=== PATIENT | female | born 1960 | race Caucasian/White ===

== ENCOUNTER 2022-06-30 17:11 | Inpatient (IN) | payer MEDICAID, OTHER ==
[~2022-06-30] VITALS: Ht 162.6 cm; Wt 55.6 kg
[2022-06-30 22:19] LABS: Basophils # (auto) 0.1 10 ^3/uL (0-0.2); Basophils % (auto) 1.2 % (0.0-2.0); Eosinophils # (auto) 0.1 10 ^3/uL (0-0.8); Hematocrit 36.2 % (36.0-46.0); Hemoglobin 12.1 g/dL (12.2-16.2); Lymphocytes # (auto) 1.3 10 ^3/uL (0.4-5.4); Lymphocytes % (auto) 22.4 % (10.0-50.0); Mean Corpuscular Hemoglobin 29.1 pg (28.0-32.0); Mean Corpuscular Hgb Conc. 33.3 g/dL (32.0-36.0); Mean Corpuscular Volume 87.4 fL (80.0-100.0); Monocytes # (auto) 0.6 10 ^3/uL (0-1.3); Monocytes % (auto) 10.4 % (0.0-12.0); Neutrophils # (auto) 3.7 10 ^3/uL (1.6-8.6); Nucleated Red Blood Cells % 0.1 %; Red Blood Cells 4.14 10^6/uL (4.0-5.20); Red Cell Distribution Width 13.6 % (11.8-14.3); White Blood Cell 5.8 10^3/uL (4.4-10.8)
[2022-06-30 22:34] LABS: Albumin 3.5 g/dL (3.4-5.0); BUN/Creatinine Ratio 22.5; Calcium 9.2 mg/dL (8.5-10.1); Potassium 3.1 mmol/L (3.5-5.1)
[2022-06-30 22:37] LABS: Bilirubin, Total 0.4 mg/dL (0.2-1.0); Total Protein 7.3 g/dL (6.4-8.2)
[2022-06-30] MEDS ORDERED: POTASSIUM CHL 20 Meq TABLET PO ONE (23:45)
[2022-07-01] MEDS ORDERED: LORazepam 2MG/ML-1ML VIAL IM ONE (01:15)
[2022-07-01 02:06] LABS: Urine Bacteria NONE SEEN /hpf (None Seen); Urine Blood Negative /uL (Negative); Urine Mucus FEW (None Seen); Urine Specific Gravity 1.032 (1.001-1.035); Urine WBC 3 /hpf (0 - 5)
[2022-07-01] MEDS ORDERED: TEMAZEPAM 15 MG CAP PO PRN (04:45)
[2022-07-01] MEDS ORDERED: ONDANSETRON HCL 4 MG/2 ML VIAL IV PRN (04:45)
[2022-07-01] MEDS: PANTOPRAZOLE 40 MG TAB PO SCH (12:01)
[2022-07-01] MEDS: ENOXAPARIN SOD 40 MG/0.4 ML SYRINGE SC SCH (12:02)
[2022-07-01] MEDS ORDERED: QUEtiapine FUMARATE 25 MG TAB PO ONE (16:00)
[2022-07-01 17:00] VITALS: BP 117/71
[2022-07-01 17:55] LABS: Albumin 3.6 g/dL (3.4-5.0); Calcium 8.8 mg/dL (8.5-10.1); Potassium 3.4 mmol/L (3.5-5.1)
[2022-07-01 18:04] LABS: BUN/Creatinine Ratio 19.2; Bilirubin, Total 0.4 mg/dL (0.2-1.0)
[2022-07-01 22:00] VITALS: BP 129/74
[2022-07-01] MEDS ORDERED: POTASSIUM EFFERVESENT TAB 25 MEQ PO ONE (22:00)
[2022-07-01] MEDS: ATORVASTATIN 20 MG TAB PO SCH (22:06)
[2022-07-02 05:00] VITALS: BP 108/67
[2022-07-02 05:57] LABS: Basophils # (auto) 0.1 10 ^3/uL (0-0.2); Basophils % (auto) 1.2 % (0.0-2.0); Eosinophils # (auto) 0.1 10 ^3/uL (0-0.8); Eosinophils % (auto) 2.2 % (0.0-7.0); Hematocrit 37.3 % (36.0-46.0); Hemoglobin 12.1 g/dL (12.2-16.2); Lymphocytes # (auto) 1.5 10 ^3/uL (0.4-5.4); Lymphocytes % (auto) 26.9 % (10.0-50.0); Mean Corpuscular Hemoglobin 28.2 pg (28.0-32.0); Mean Corpuscular Hgb Conc. 32.4 g/dL (32.0-36.0); Monocytes # (auto) 0.4 10 ^3/uL (0-1.3); Monocytes % (auto) 8.2 % (0.0-12.0); Neutrophils # (auto) 3.3 10 ^3/uL (1.6-8.6); Neutrophils % (auto) 61.5 % (37.0-80.0); Red Blood Cells 4.29 10^6/uL (4.0-5.20); Red Cell Distribution Width 13.4 % (11.8-14.3); White Blood Cell 5.4 10^3/uL (4.4-10.8)
[2022-07-02 06:03] LABS: Albumin 3.2 g/dL (3.4-5.0); Calcium 8.4 mg/dL (8.5-10.1); Potassium 3.9 mmol/L (3.5-5.1)
[2022-07-02 06:07] LABS: BUN/Creatinine Ratio 11.8; Bilirubin, Total 0.5 mg/dL (0.2-1.0); Total Protein 6.1 g/dL (6.4-8.2)
[2022-07-02] MEDS: PANTOPRAZOLE 40 MG TAB PO SCH (10:00)
[2022-07-02] MEDS: ENOXAPARIN SOD 40 MG/0.4 ML SYRINGE SC SCH (10:11)
[2022-07-02] MEDS ORDERED: LORazepam 0.5 MG TAB PO PRN (16:45)
[2022-07-02] MEDS: ATORVASTATIN 20 MG TAB PO SCH (21:34)
[2022-07-02 22:00] VITALS: BP 144/65
[2022-07-03 05:00] VITALS: BP 114/80
[2022-07-03] MEDS: ACETAMINOPHEN 325 MG TAB PO PRN (06:51)
[2022-07-03 06:52] LABS: Basophils # (auto) 0.1 10 ^3/uL (0-0.2); Basophils % (auto) 1.1 % (0.0-2.0); Eosinophils # (auto) 0.1 10 ^3/uL (0-0.8); Eosinophils % (auto) 2.3 % (0.0-7.0); Hematocrit 35.8 % (36.0-46.0); Lymphocytes # (auto) 1.1 10 ^3/uL (0.4-5.4); Lymphocytes % (auto) 18.8 % (10.0-50.0); Mean Corpuscular Hemoglobin 29.2 pg (28.0-32.0); Mean Corpuscular Hgb Conc. 33.4 g/dL (32.0-36.0); Mean Corpuscular Volume 87.4 fL (80.0-100.0); Monocytes # (auto) 0.4 10 ^3/uL (0-1.3); Monocytes % (auto) 6.8 % (0.0-12.0); Neutrophils # (auto) 4.2 10 ^3/uL (1.6-8.6); Nucleated Red Blood Cells % 0.1 %; Red Cell Distribution Width 13.9 % (11.8-14.3)
[2022-07-03 06:57] LABS: Calcium 8.7 mg/dL (8.5-10.1); Potassium 3.8 mmol/L (3.5-5.1)
[2022-07-03 06:59] LABS: BUN/Creatinine Ratio 17.6
[2022-07-03 07:00] LABS: Albumin 2.9 g/dL (3.4-5.0)
[2022-07-03 07:03] LABS: Bilirubin, Total 0.3 mg/dL (0.2-1.0)
[2022-07-03 08:00] VITALS: BP 112/77
[2022-07-03] MEDS: ENOXAPARIN SOD 40 MG/0.4 ML SYRINGE SC SCH (10:25)
[2022-07-03] MEDS: PANTOPRAZOLE 40 MG TAB PO SCH (10:25)
[2022-07-03 12:00] VITALS: BP 124/77
[2022-07-03] MEDS ORDERED: ASPirin 81 mg TAB PO ONE (15:15)
[2022-07-03 16:00] VITALS: BP 131/77
[2022-07-03 22:00] VITALS: BP 99/52
[2022-07-03] MEDS: ATORVASTATIN 20 MG TAB PO SCH (22:20)
[2022-07-04 05:00] VITALS: BP 114/77
[2022-07-04 07:08] LABS: Basophils # (auto) 0.1 10 ^3/uL (0-0.2); Basophils % (auto) 1.2 % (0.0-2.0); Eosinophils # (auto) 0.1 10 ^3/uL (0-0.8); Eosinophils % (auto) 2.4 % (0.0-7.0); Hematocrit 37.2 % (36.0-46.0); Hemoglobin 12.2 g/dL (12.2-16.2); Lymphocytes # (auto) 1.5 10 ^3/uL (0.4-5.4); Lymphocytes % (auto) 29.5 % (10.0-50.0); Mean Corpuscular Hemoglobin 28.7 pg (28.0-32.0); Mean Corpuscular Hgb Conc. 32.8 g/dL (32.0-36.0); Mean Corpuscular Volume 87.3 fL (80.0-100.0); Monocytes # (auto) 0.4 10 ^3/uL (0-1.3); Monocytes % (auto) 7.5 % (0.0-12.0); Neutrophils % (auto) 59.4 % (37.0-80.0); Nucleated Red Blood Cells % 0.4 %; Red Blood Cells 4.25 10^6/uL (4.0-5.20); Red Cell Distribution Width 13.9 % (11.8-14.3); White Blood Cell 5.1 10^3/uL (4.4-10.8)
[2022-07-04 07:18] LABS: Albumin 3.3 g/dL (3.4-5.0); Calcium 8.7 mg/dL (8.5-10.1)
[2022-07-04 07:24] LABS: BUN/Creatinine Ratio 13.9; Bilirubin, Total 0.4 mg/dL (0.2-1.0); Total Protein 6.8 g/dL (6.4-8.2)
[2022-07-04 09:00] VITALS: BP 117/72
[2022-07-04] MEDS: ASPirin 81 mg TAB PO SCH (10:53)
[2022-07-04 13:00] VITALS: BP 118/65
[2022-07-04 16:58] VITALS: BP 119/64
[2022-07-04 21:31] VITALS: BP 139/85
[2022-07-04] MEDS: ATORVASTATIN 20 MG TAB PO SCH (22:13)
[2022-07-05 04:55] VITALS: BP 112/69
[2022-07-05 05:31] LABS: Basophils # (auto) 0.1 10 ^3/uL (0-0.2); Eosinophils # (auto) 0.1 10 ^3/uL (0-0.8); Eosinophils % (auto) 2.3 % (0.0-7.0); Hematocrit 35.1 % (36.0-46.0); Hemoglobin 11.5 g/dL (12.2-16.2); Lymphocytes # (auto) 1.3 10 ^3/uL (0.4-5.4); Lymphocytes % (auto) 23.3 % (10.0-50.0); Mean Corpuscular Hemoglobin 28.8 pg (28.0-32.0); Mean Corpuscular Hgb Conc. 32.9 g/dL (32.0-36.0); Mean Corpuscular Volume 87.6 fL (80.0-100.0); Monocytes # (auto) 0.4 10 ^3/uL (0-1.3); Monocytes % (auto) 7.9 % (0.0-12.0); Neutrophils # (auto) 3.7 10 ^3/uL (1.6-8.6); Neutrophils % (auto) 65.5 % (37.0-80.0); Nucleated Red Blood Cells % 0.1 %; Red Blood Cells 4.01 10^6/uL (4.0-5.20); White Blood Cell 5.7 10^3/uL (4.4-10.8)
[2022-07-05 05:46] LABS: Albumin 3.1 g/dL (3.4-5.0); Calcium 8.5 mg/dL (8.5-10.1)
[2022-07-05 05:50] LABS: BUN/Creatinine Ratio 22.9; Bilirubin, Total 0.4 mg/dL (0.2-1.0); Total Protein 6.1 g/dL (6.4-8.2)
[2022-07-05 08:00] VITALS: BP 122/79
[2022-07-05] MEDS: ASPirin 81 mg TAB PO SCH (08:17)
[2022-07-05 12:00] VITALS: BP 113/72
[2022-07-05 12:40] LABS: Folate (Folic Acid) 15.11 ng/mL (5.38-24)
[2022-07-05 16:00] VITALS: BP 125/79
[2022-07-05 20:00] VITALS: BP 145/75
[2022-07-05] MEDS: ACETAMINOPHEN 325 MG TAB PO PRN (21:39)
[2022-07-05] MEDS: ATORVASTATIN 20 MG TAB PO SCH (21:42)
[2022-07-05 22:00] VITALS: BP 145/75
[2022-07-06 05:00] VITALS: BP 115/79
[2022-07-06 06:02] LABS: Basophils # (auto) 0.1 10 ^3/uL (0-0.2); Basophils % (auto) 1.5 % (0.0-2.0); Eosinophils # (auto) 0.1 10 ^3/uL (0-0.8); Eosinophils % (auto) 1.8 % (0.0-7.0); Hematocrit 38.4 % (36.0-46.0); Hemoglobin 12.4 g/dL (12.2-16.2); Lymphocytes # (auto) 1.4 10 ^3/uL (0.4-5.4); Mean Corpuscular Hemoglobin 28.4 pg (28.0-32.0); Mean Corpuscular Hgb Conc. 32.2 g/dL (32.0-36.0); Mean Corpuscular Volume 88.3 fL (80.0-100.0); Monocytes # (auto) 0.4 10 ^3/uL (0-1.3); Monocytes % (auto) 6.4 % (0.0-12.0); Neutrophils # (auto) 4.3 10 ^3/uL (1.6-8.6); Neutrophils % (auto) 68.3 % (37.0-80.0); Red Blood Cells 4.35 10^6/uL (4.0-5.20); Red Cell Distribution Width 13.9 % (11.8-14.3); White Blood Cell 6.3 10^3/uL (4.4-10.8)
[2022-07-06 06:20] LABS: Albumin 3.5 g/dL (3.4-5.0); Potassium 4.2 mmol/L (3.5-5.1)
[2022-07-06 06:24] LABS: BUN/Creatinine Ratio 17.3; Bilirubin, Total 0.4 mg/dL (0.2-1.0); Total Protein 6.6 g/dL (6.4-8.2)
[2022-07-06 09:00] VITALS: BP 99/71
[2022-07-06] MEDS: ASPirin 81 mg TAB PO SCH (10:13)
[2022-07-06 13:00] VITALS: BP 115/56
[2022-07-06] MEDS ORDERED: MEGE40TA4 PO (16:22)
[2022-07-06] MEDS ORDERED: VENL75CA78 PO (16:22)
[2022-07-06] MEDS ORDERED: TRAZ50TA2 PO (16:22)
[2022-07-06] MEDS ORDERED: ROSU10TA16 PO (16:22)
[2022-07-06 17:00] VITALS: BP 122/80
[2022-07-06 20:00] VITALS: BP 122/80
[2022-07-06 21:00] VITALS: BP 123/82
[2022-07-06] MEDS: ATORVASTATIN 20 MG TAB PO SCH (21:46)
[2022-07-07 05:03] LABS: Basophils # (auto) 0.1 10 ^3/uL (0-0.2); Eosinophils # (auto) 0.1 10 ^3/uL (0-0.8); Eosinophils % (auto) 1.3 % (0.0-7.0); Hemoglobin 11.6 g/dL (12.2-16.2); Lymphocytes # (auto) 1.2 10 ^3/uL (0.4-5.4); Lymphocytes % (auto) 18.5 % (10.0-50.0); Mean Corpuscular Hemoglobin 28.2 pg (28.0-32.0); Mean Corpuscular Hgb Conc. 32.3 g/dL (32.0-36.0); Mean Corpuscular Volume 87.5 fL (80.0-100.0); Monocytes # (auto) 0.5 10 ^3/uL (0-1.3); Monocytes % (auto) 7.6 % (0.0-12.0); Neutrophils # (auto) 4.7 10 ^3/uL (1.6-8.6); Neutrophils % (auto) 71.6 % (37.0-80.0); Red Blood Cells 4.12 10^6/uL (4.0-5.20); Red Cell Distribution Width 13.9 % (11.8-14.3); White Blood Cell 6.6 10^3/uL (4.4-10.8)
[2022-07-07 05:24] LABS: Albumin 3.4 g/dL (3.4-5.0); Calcium 8.6 mg/dL (8.5-10.1)
[2022-07-07 05:29] LABS: Bilirubin, Total 0.4 mg/dL (0.2-1.0); Total Protein 6.4 g/dL (6.4-8.2)
[2022-07-07 07:07] LABS: RPR Non Reactive (Non Reactive)
[2022-07-07 08:30] VITALS: BP 105/74
[2022-07-07 09:03] VITALS: BP 105/74
[2022-07-07] MEDS: ASPirin 81 mg TAB PO SCH (09:52)
[2022-07-07 12:52] VITALS: BP 115/72
[2022-07-07 17:09] VITALS: BP 109/69
[2022-07-07 20:00] VITALS: BP 117/70
[2022-07-07 22:00] VITALS: BP 117/70
[2022-07-07] MEDS: ATORVASTATIN 20 MG TAB PO SCH (22:34)
[2022-07-08 04:43] VITALS: BP 118/75
[2022-07-08 06:08] LABS: Basophils # (auto) 0.1 10 ^3/uL (0-0.2); Basophils % (auto) 1.1 % (0.0-2.0); Eosinophils # (auto) 0.1 10 ^3/uL (0-0.8); Hematocrit 33.9 % (36.0-46.0); Hemoglobin 11.2 g/dL (12.2-16.2); Lymphocytes # (auto) 1.8 10 ^3/uL (0.4-5.4); Lymphocytes % (auto) 27.5 % (10.0-50.0); Mean Corpuscular Volume 87.8 fL (80.0-100.0); Monocytes # (auto) 0.5 10 ^3/uL (0-1.3); Monocytes % (auto) 8.3 % (0.0-12.0); Neutrophils # (auto) 3.9 10 ^3/uL (1.6-8.6); Neutrophils % (auto) 61.1 % (37.0-80.0); Nucleated Red Blood Cells % 0.1 %; Red Blood Cells 3.86 10^6/uL (4.0-5.20); Red Cell Distribution Width 13.9 % (11.8-14.3); White Blood Cell 6.5 10^3/uL (4.4-10.8)
[2022-07-08 06:14] LABS: Potassium 3.8 mmol/L (3.5-5.1)
[2022-07-08 06:20] LABS: Albumin 3.1 g/dL (3.4-5.0); BUN/Creatinine Ratio 23.9; Bilirubin, Total 0.4 mg/dL (0.2-1.0); Calcium 8.3 mg/dL (8.5-10.1); Total Protein 6.2 g/dL (6.4-8.2)
[2022-07-08 08:00] VITALS: BP 135/79
[2022-07-08 08:52] VITALS: BP 135/79
[2022-07-08] MEDS: ASPirin 81 mg TAB PO SCH (09:35)
[2022-07-08 13:00] VITALS: BP 130/81
[2022-07-08 17:00] VITALS: BP 103/66
[2022-07-08] MEDS: ATORVASTATIN 20 MG TAB PO SCH (21:18)
[2022-07-08 22:03] VITALS: BP 128/76
[2022-07-09 05:00] VITALS: BP 104/77
[2022-07-09 08:00] VITALS: BP 132/79
[2022-07-09 08:36] VITALS: BP 132/79
[2022-07-09] MEDS: ASPirin 81 mg TAB PO SCH (08:56)
[2022-07-09 13:30] VITALS: BP 137/84
[2022-07-09 16:40] VITALS: BP 119/87
[2022-07-09 22:00] VITALS: BP 139/83
[2022-07-09] MEDS: ATORVASTATIN 20 MG TAB PO SCH (22:58)
[2022-07-10 05:00] VITALS: BP 126/75
[2022-07-10 08:00] VITALS: BP 123/78
[2022-07-10 09:00] VITALS: BP 123/78
[2022-07-10] MEDS: ASPirin 81 mg TAB PO SCH (11:32)
[2022-07-10 13:00] VITALS: BP 128/72
[2022-07-10] MEDS: ATORVASTATIN 20 MG TAB PO SCH (21:41)
[2022-07-10 22:00] VITALS: BP 129/76
[2022-07-11 05:00] VITALS: BP 134/82
[2022-07-11 08:00] VITALS: BP_SYST 119; BP_SYST 134; BP_DIAS 73; BP_DIAS 82
[2022-07-11] MEDS: ASPirin 81 mg TAB PO SCH (09:49)
[2022-07-11 12:00] VITALS: BP 114/66
[2022-07-11 16:00] VITALS: BP 105/74
[2022-07-11 20:12] VITALS: BP 136/92
[2022-07-11] MEDS: ATORVASTATIN 20 MG TAB PO SCH (21:32)
[2022-07-12 09:00] VITALS: BP 124/74
[2022-07-12] MEDS: ASPirin 81 mg TAB PO SCH (10:24)
[2022-07-12] MEDS ORDERED: POLYETHYLENE GLYCOL 17 GM PWDR PO PRN (13:45)
[2022-07-12 17:00] VITALS: BP 118/77
[2022-07-12] MEDS: ATORVASTATIN 20 MG TAB PO SCH (20:47)
[2022-07-12 21:58] VITALS: BP 115/78
[2022-07-13 05:30] VITALS: BP 118/72
[2022-07-13 09:00] VITALS: BP 100/67
[2022-07-13] MEDS: ASPirin 81 mg TAB PO SCH (10:34)
[2022-07-13 13:00] VITALS: BP 117/72
[2022-07-13 17:00] VITALS: BP 117/73
[2022-07-13] MEDS: ATORVASTATIN 20 MG TAB PO SCH (21:52)
[2022-07-13 22:00] VITALS: BP 122/72
[2022-07-14 04:42] VITALS: BP 120/70
[2022-07-14 09:00] VITALS: BP 134/75
[2022-07-14] MEDS: ASPirin 81 mg TAB PO SCH (09:57)
[2022-07-14 13:00] VITALS: BP 114/77
[2022-07-14 17:00] VITALS: BP 116/73
[2022-07-14 21:55] VITALS: BP 118/65
[2022-07-14] MEDS: ATORVASTATIN 20 MG TAB PO SCH ×2 (21:58→22:05)
[2022-07-15 05:00] VITALS: BP 120/90
[2022-07-15 08:19] VITALS: BP 132/79
[2022-07-15] MEDS: ASPirin 81 mg TAB PO SCH (10:18)
[2022-07-15 12:30] VITALS: BP 116/73
[2022-07-15 16:37] VITALS: BP 140/84
[2022-07-15 21:30] VITALS: BP 137/90
[2022-07-15] MEDS: ATORVASTATIN 20 MG TAB PO SCH (21:54)
[2022-07-16 05:00] VITALS: BP 129/80
[2022-07-16] MEDS: ASPirin 81 mg TAB PO SCH (10:16)
[2022-07-16] MEDS ORDERED: TUBERCULIN PPD 5 UNIT/0.1 ML ID ONE (17:30)
[2022-07-16] MEDS: ATORVASTATIN 20 MG TAB PO SCH (21:31)
[2022-07-16 22:00] VITALS: BP 114/69
[2022-07-17 05:00] VITALS: BP 127/68
[2022-07-17 09:00] VITALS: BP 134/81
[2022-07-17] MEDS: ASPirin 81 mg TAB PO SCH (10:03)
[2022-07-17 13:00] VITALS: BP 126/81
[2022-07-17 17:00] VITALS: BP 113/68
[2022-07-17] MEDS: ATORVASTATIN 20 MG TAB PO SCH (21:34)
[2022-07-17 21:56] VITALS: BP 143/87
[2022-07-18 04:54] VITALS: BP 119/84
[2022-07-18 09:00] VITALS: BP 125/89
[2022-07-18] MEDS: ASPirin 81 mg TAB PO SCH (10:12)
[2022-07-18 13:00] VITALS: BP 125/89
[2022-07-18 16:47] VITALS: BP 113/80
[2022-07-18 20:48] VITALS: BP 126/78
[2022-07-18] MEDS: ATORVASTATIN 20 MG TAB PO SCH (21:22)
[2022-07-19 04:57] VITALS: BP 117/72
[2022-07-19 08:30] VITALS: BP 118/86
[2022-07-19] MEDS: ASPirin 81 mg TAB PO SCH (10:03)
[2022-07-19 12:30] VITALS: BP 105/66
[2022-07-19 17:00] VITALS: BP 126/87
[2022-07-19 22:00] VITALS: BP 140/82
[2022-07-20 05:00] VITALS: BP 107/80
[2022-07-20 09:14] VITALS: BP 124/84
[2022-07-20 12:42] VITALS: BP 154/95
[2022-07-20 16:36] VITALS: BP 108/61
[2022-07-20 22:20] VITALS: BP 120/73
[2022-07-21] VITALS (7 sets, daily range): BP systolic 102–119; BP diastolic 58–76
[2022-07-22] VITALS (7 sets, daily range): BP systolic 105–134; BP diastolic 62–83
[2022-07-23 04:44] VITALS: BP 127/72
[2022-07-23 09:00] VITALS: BP 111/74
[2022-07-23 12:56] VITALS: BP 111/76
[2022-07-23 17:00] VITALS: BP 118/83
[2022-07-23 18:12] LABS: BUN/Creatinine Ratio 18.2; Calcium 9.3 mg/dL (8.5-10.1); Potassium 4.1 mmol/L (3.5-5.1)
[2022-07-23 18:16] LABS: Basophils # (auto) 0.1 10 ^3/uL (0-0.2); Basophils % (auto) 1.3 % (0.0-2.0); Eosinophils # (auto) 0.1 10 ^3/uL (0-0.8); Eosinophils % (auto) 1.3 % (0.0-7.0); Hematocrit 40.7 % (36.0-46.0); Hemoglobin 13.5 g/dL (12.2-16.2); Lymphocytes # (auto) 1.9 10 ^3/uL (0.4-5.4); Lymphocytes % (auto) 24.9 % (10.0-50.0); Mean Corpuscular Hemoglobin 29.1 pg (28.0-32.0); Mean Corpuscular Hgb Conc. 33.2 g/dL (32.0-36.0); Mean Corpuscular Volume 87.6 fL (80.0-100.0); Monocytes # (auto) 0.5 10 ^3/uL (0-1.3); Neutrophils # (auto) 4.9 10 ^3/uL (1.6-8.6); Neutrophils % (auto) 65.5 % (37.0-80.0); Nucleated Red Blood Cells % 0.1 %; Red Blood Cells 4.64 10^6/uL (4.0-5.20); Red Cell Distribution Width 14.6 % (11.8-14.3); White Blood Cell 7.5 10^3/uL (4.4-10.8)
[2022-07-23 22:00] VITALS: BP 110/76
[2022-07-24 05:00] VITALS: BP 116/71
[2022-07-24 09:00] VITALS: BP 116/85
[2022-07-24 17:00] VITALS: BP 117/86
[2022-07-24 20:00] VITALS: BP 117/82
[2022-07-24 22:00] VITALS: BP 122/83
[2022-07-25 05:00] VITALS: BP 116/76
[2022-07-25 08:00] VITALS: BP 114/77
[2022-07-25 12:00] VITALS: BP 119/69
[2022-07-25 16:00] VITALS: BP 124/87
[2022-07-25 20:00] VITALS: BP 124/87
[2022-07-25 22:00] VITALS: BP 111/71
[2022-07-26 05:00] VITALS: BP 91/57
[2022-07-26 09:00] VITALS: BP 101/61
[2022-07-26 13:00] VITALS: BP 115/74
[2022-07-26 17:00] VITALS: BP 122/68
[2022-07-26 20:00] VITALS: BP 121/72
[2022-07-26 22:00] VITALS: BP 121/72
[2022-07-27 05:00] VITALS: BP 123/97
[2022-07-27 09:00] VITALS: BP 112/70
[2022-07-27 13:00] VITALS: BP 129/86
[2022-07-28 09:00] VITALS: BP 108/71
[2022-07-28 12:33] VITALS: BP 111/80
[2022-07-28 17:00] VITALS: BP 133/87
[2022-07-28 22:00] VITALS: BP 126/78
[2022-07-29 05:00] VITALS: BP 113/73
[2022-07-29 16:42] VITALS: BP 112/78
[2022-07-29 20:00] VITALS: BP 105/58
[2022-07-29 22:00] VITALS: BP 105/58
[2022-07-29] MEDS ORDERED: MELATONIN 5 MG TAB PO PRN (22:00)
[2022-07-29] MEDS ORDERED: MELATONIN 5 MG TAB PO SCH (22:00)
[2022-07-30] VITALS (7 sets, daily range): BP systolic 103–127; BP diastolic 58–82
[2022-07-30] MEDS: Ensure Enlive Strawberry 8oz Bottle PO SCH (18:59)
[2022-07-31] VITALS (7 sets, daily range): BP systolic 112–134; BP diastolic 66–81
[2022-07-31] MEDS: Ensure Enlive Strawberry 8oz Bottle PO SCH ×2 (07:48→19:48)
[2022-08-01 05:00] VITALS: BP 109/76
[2022-08-01] MEDS: Ensure Enlive Strawberry 8oz Bottle PO SCH ×2 (08:19→18:00)
[2022-08-01 17:00] VITALS: BP 119/80
[2022-08-01 22:00] VITALS: BP 125/79
[2022-08-02] MEDS: Ensure Enlive Strawberry 8oz Bottle PO SCH ×2 (07:52→18:00)
[2022-08-02 09:14] VITALS: BP 119/80
[2022-08-02 13:00] VITALS: BP 117/77
[2022-08-02 17:00] VITALS: BP 118/78
[2022-08-02 22:00] VITALS: BP 139/94
[2022-08-03 05:00] VITALS: BP 119/76
[2022-08-03] MEDS: Ensure Enlive Strawberry 8oz Bottle PO SCH ×2 (08:36→17:45)
[2022-08-03 09:00] VITALS: BP 126/75
[2022-08-03 12:55] VITALS: BP 130/75
[2022-08-03 16:55] VITALS: BP 132/77
[2022-08-03 21:27] VITALS: BP 129/68
[2022-08-04 04:53] VITALS: BP 126/86
[2022-08-04] MEDS: Ensure Enlive Strawberry 8oz Bottle PO SCH ×2 (08:01→18:04)
[2022-08-04 09:00] VITALS: BP 123/73
[2022-08-04 18:46] VITALS: BP 117/84
[2022-08-04 21:30] VITALS: BP 113/69
[2022-08-05 05:00] VITALS: BP 110/70
[2022-08-05 08:00] VITALS: BP 126/77
[2022-08-05 11:18] LABS: Basophils # (auto) 0.1 10 ^3/uL (0-0.2); Basophils % (auto) 1.3 % (0.0-2.0); Eosinophils # (auto) 0 10 ^3/uL (0-0.8); Eosinophils % (auto) 0.8 % (0.0-7.0); Hematocrit 36.9 % (36.0-46.0); Hemoglobin 12.3 g/dL (12.2-16.2); Lymphocytes # (auto) 1.6 10 ^3/uL (0.4-5.4); Lymphocytes % (auto) 26.7 % (10.0-50.0); Mean Corpuscular Hemoglobin 29.6 pg (28.0-32.0); Mean Corpuscular Hgb Conc. 33.3 g/dL (32.0-36.0); Mean Corpuscular Volume 88.9 fL (80.0-100.0); Monocytes # (auto) 0.5 10 ^3/uL (0-1.3); Monocytes % (auto) 7.7 % (0.0-12.0); Neutrophils # (auto) 3.8 10 ^3/uL (1.6-8.6); Neutrophils % (auto) 63.5 % (37.0-80.0); Nucleated Red Blood Cells % 0.1 %; Red Blood Cells 4.15 10^6/uL (4.0-5.20); Red Cell Distribution Width 14.6 % (11.8-14.3)
[2022-08-05 11:28] LABS: BUN/Creatinine Ratio 28.9; Calcium 8.9 mg/dL (8.5-10.1); Potassium 4.2 mmol/L (3.5-5.1)
[2022-08-05] MEDS: Ensure Enlive Strawberry 8oz Bottle PO SCH ×2 (11:38→18:09)
[2022-08-05 13:00] VITALS: BP 116/68
[2022-08-05 17:00] VITALS: BP 136/82
[2022-08-05 22:00] VITALS: BP 134/92
[2022-08-06 04:46] VITALS: BP 129/80
== END 2022-08-06 06:15 | DRG 52 ==
LOC: EDBD 17:11 → ER 17:11 → OVERFLOW 07-01 04:37 → EAST 07-01 15:57
PROVIDERS: ADMIT Nurse Practitioner; ATTEND Student in an Organized Health Care Education/Training Program
DX: G93.41 Metabolic encephalopathy (principal); G30.9 Alzheimer's disease, unspecified; R56.9 Unspecified convulsions; F05 Delirium due to known physiological condition; E87.6 Hypokalemia; B35.1 Tinea unguium; E78.5 Hyperlipidemia, unspecified; F32.A Depression, unspecified; Z20.822 Contact with and (suspected) exposure to COVID-19; F02.80 Dementia in other diseases classified elsewhere, unspecified severity, without behavioral disturbance, psychotic disturbance, mood disturbance, and anxiety; G93.40 Encephalopathy, unspecified; I10 Essential (primary) hypertension; G47.00 Insomnia, unspecified; Z98.42 Cataract extraction status, left eye; Z98.41 Cataract extraction status, right eye; Z90.710 Acquired absence of both cervix and uterus; Z82.49 Family history of ischemic heart disease and other diseases of the circulatory system; Z83.3 Family history of diabetes mellitus; Z63.4 Disappearance and death of family member
CPT/HCPCS: 36415; 70450; 70551; 71045; 71250; 74176; 80048; 80053; 81001; 82140; 82607; 82746; 82962; 83605; 83690; 84443; 84484; 85025; 85652; 86038; 86141; 86592; 87040; 87426; 93005; 95819; 96372; G0378